=== PATIENT | female | born 1990 | race Caucasian/White ===

== ENCOUNTER 2025-08-05 16:57 | Emergency (ER) | payer MEDICAID ==
[2025-08-05 19:34] LABS: Glucose, Urine (Dipstick) Normal (Negative); Leukocyte 500 (Negative); Protein, Urine (Dipstick) 30 mg/dl (Neg-Trace); Specific Gravity, Urine 1.025 (1.005-1.030)
[2025-08-05 19:36] LABS: Pregnancy Test - Urine (BHCG) Negative (Negative); Pregu Control Background? CLEAR/WHITE (CLR/WHITE); Pregu Control Bar Appear? YES (CONTROL BAR)
[2025-08-05 19:44] LABS: Bacteria/HPF 1+ HPF (None Seen); CAUTI Indications for Culture Pelvic or flank pain; RBC/HPF 21-50 HPF (0-3); Urine Culture Reflex No No
== END 2025-08-05 20:12 | disposition home or self-care (01) ==
LOC: CSHERS 16:57
DX: M54.42 Lumbago with sciatica, left side (principal); N39.0 Urinary tract infection, site not specified
CPT/HCPCS: 36416; 81001; 81025; 87077; 87086